=== PATIENT | female | born 1965 | race Caucasian/White ===

== ENCOUNTER 2018-07-01 17:14 | Emergency (ER) | payer MEDICARE ==
[2018-07-01 17:36] VITALS: BP 123/84
--- NOTE | 2018-07-01 19:02 | UC ---
Complaint Female HPI - HPI Summary HPI Summary: Patient complianing of urinary discharge, has been treated for vaginal infection now has dysuria and is complaining of lower abdominal pressure - History Of Current Complaint Chief Complaint: UCGU Stated Complaint: URINARY Time Seen by Provider: 07/01/18 17:25 Hx Obtained From: Patient ?: No Onset/Duration: Sudden Onset, Lasting Days Timing: Constant Pain Intensity: 3 Character: Burning Aggravating Factor(s): Urination - Allergies/Home Medications Allergies/Adverse Reactions: Allergies Allergy/AdvReac Type Severity Reaction Status Date / Time buspirone [From BuSpar] Allergy Hives Verified 07/01/18 17:36 nickel Allergy Rash Verified 07/01/18 17:36 Home Medications: Home Medications Dexmethylphenidate HCl 10 mg PO SEE INSTRUCTIONS 07/01/18 [History Confirmed ] Dexmethylphenidate HCl 20 mg PO QAM 07/01/18 [History Confirmed 07/01/18] buPROPion HCl [Wellbutrin Sr] 300 mg PO DAILY 07/01/18 [History Confirmed ] PMH/Surg Hx/FS Hx/Imm Hx Previously Healthy: Yes - Surgical History Surgical History: Yes Surgery Procedure, Year, and Place: 2001 [place]. 1983 ECTOPIC - OOPHORECTOMY [employer]. NUMEROUS D& Cs 6 miscarriages [employer]. 2005 RT CARPAL TUNNEL RELEASE [facility], left ~2010 - Family History Known Family History: Positive: Hypertension - Social History Alcohol Use: Occasionally Alcohol Amount: 4-5 BEERS/ WEEKENDS Substance Use Type: None Smoking Status (MU): Former Smoker Type: Cigarettes Amount Used/How Often: 1/2-1 PPD 35 YRS Have You Smoked in the Last Year: Yes Household Exposure Type: Cigarettes Review of Systems All Other Systems Reviewed And Are Negative: Yes Constitutional: Positive: Negative Skin: Positive: Negative Eyes: Positive: Negative ENT: Positive: Negative Respiratory: Positive: Negative Cardiovascular: Positive: Negative Gastrointestinal: Positive: Abdominal Pain Genitourinary: Positive: Dysuria, Frequency Motor: Positive: Negative Neurovascular: Positive: Negative Musculoskeletal: Positive: Negative Neurological: Positive: Negative Psychological: Positive: Negative Is Patient Immunocompromised?: No Physical Exam Triage Information Reviewed: Yes Appearance: Well-Appearing, Well-Nourished, Pain Distress Vital Signs: Initial Vital Signs Temp 98.1 F 07/01/18 17:29 Pulse 85 07/01/18 17:29 Resp 18 07/01/18 17:29 BP 123/84 07/01/18 17:29 Pulse Ox 100 07/01/18 17:29 Vital Signs Reviewed: Yes Eye Exam: Normal ENT Exam: Normal Dental Exam: Normal Neck exam: Normal Respiratory Exam: Normal Cardiovascular Exam: Normal Abdomen Description: Positive: Nontender, No Organomegaly, Soft, CVA Tenderness (R) - neg, CVA Tenderness (L) - neg Musculoskeletal Exam: Normal Neurological Exam: Normal Psychological Exam: Normal Skin Exam: Normal Complaint Female Dx - Course Course Of Treatment: hx obtained, exam performed ,ua positive for leuks, educated patient on OTC aids for frequent UTIs and vaginitis - Differential Dx/Diagnosis Differential Diagnosis/HQI/PQRI: Urinary Tract Infection Provider Diagnosis: Dysuria Discharge - Sign-Out/Discharge Documenting (check all that apply): Patient Departure All imaging exams completed and their final reports reviewed: No Studies - Discharge Plan Condition: Stable Disposition: HOME Prescriptions: Cephalexin CAP* [Keflex CAP*] 500 mg PO BID #14 cap Patient Education Materials: Urinary Tract Infection in Women (ED) Referrals: Ken Zambrano MD [Primary Care Provider] - Additional Instructions: 1. take the medication as prescribed. 2. FOllow up with your [employer] on 07/05 - Billing Disposition and Condition Condition: STABLE Disposition: Home - Attestation Statements Provider Attestation: Because the patient is A&Ox3, has no focal neurologic findings, no midline c- spine tenderness, no evidence of intoxication and no painful distracting injuries there is no need to obtain radiographic studies to evaluate the C- spinie.
--- NOTE | 2018-07-04 15:56 | UC ---
- Progress Note Progress Note: Urine cx is neg. Pt should dc bactrim Course/Dx - Diagnoses Provider Diagnoses: Dysuria Discharge - Sign-Out/Discharge Documenting (check all that apply): Post-Discharge Follow Up All imaging exams completed and their final reports reviewed: No Studies - Discharge Plan Condition: Stable Disposition: HOME Prescriptions: Cephalexin CAP* [Keflex CAP*] 500 mg PO BID #14 cap Patient Education Materials: Urinary Tract Infection in Women (ED) Referrals: Ken Zambrano MD [Primary Care Provider] - Additional Instructions: 1. take the medication as prescribed. 2. FOllow up with your [employer] on 07/05 - Billing Disposition and Condition Condition: STABLE Disposition: Home
== END 2018-07-01 19:14 | disposition home or self-care (01) ==
LOC: UCCORT 17:14
DX: R30.0 Dysuria (principal); R10.9 Unspecified abdominal pain; R35.0 Frequency of micturition; R19.8 Other specified symptoms and signs involving the digestive system and abdomen; Z88.8 Allergy status to other drugs, medicaments and biological substances; Z91.09 Other allergy status, other than to drugs and biological substances; Z87.891 Personal history of nicotine dependence
CPT/HCPCS: 81003; 87086; 99202; G0463